=== PATIENT | female | born 1940 | race Asian ===

== ENCOUNTER 2018-08-24 13:16 | Inpatient (IN) | payer OTHER ==
[2018-08-24] MEDS ORDERED: fentaNYL 100 MCG/2 ML INJ IVP ONE (13:21)
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
[2018-08-24 13:44] LABS: PLATELET COUNT 208 10^3/uL (150-400)
[2018-08-24] MEDS ORDERED: HYDROCODONE/APAP 5/325 TAB PO PRN (14:25)
[2018-08-24] MEDS ORDERED: LORazepam 2 MG/ML INJ IVP PRN (14:25)
[2018-08-24] MEDS ORDERED: ACETAMINOPHEN 325 MG TAB PO PRN ×2 (14:25)
[2018-08-24] MEDS ORDERED: ONDANSETRON DISINTEGRATING 4 MG TAB PO PRN (14:25)
[2018-08-24] MEDS ORDERED: ONDANSETRON 4 MG/2 ML VIAL IVP PRN (14:25)
[2018-08-24] MEDS ORDERED: NS 1,000 ML IV SCH (14:30)
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
[2018-08-24] MEDS: HYDROmorphONE/DILAUDID 1 MG/ML INJ IVP PRN ×2 (15:47→21:42)
[2018-08-24] MEDS ORDERED: BUPIVACAINE/EPI 0.5% 30 ML SDV ONE (17:44)
[2018-08-24] MEDS ORDERED: LR 1,000 ML IV ONE (17:44)
--- NOTE | 2018-08-24 17:45 | GCON ---
I was asked to see and evaluate this patient by the emergency room. She sustained a ground level fal l earlier today, resulting in left hip pain and deformity and inability to walk on the left leg. I w as asked by the emergency room to see the patient here. I saw the patient within 30 minutes of the p paresh call, around 2:30 or 3 p.m. PHYSICAL EXAMINATION: The left leg is grossly neurologically intact, limited by pain. However, the skin was clean, dry, and intact. The leg was noted to be shortened and externally rotated. Imaging demonstrates a left intertrochanteric fracture. IMPRESSION: Left intertrochanteric fracture, closed. ASSESSMENT AND PLAN: Patient reports no history of cancer. She does report some osteoporosis drug u se, however, it is unclear if it is bisphosphonate or not. I went over risks, benefits, and alternat tamra of treatment for the patient and I do think that she would strongly benefit from operation to st abilize the hip with an intramedullary implant. We will move forward. She has not eaten any fatty f oods since noon, so we will attempt to open reduce the hip at about 6 o'clock tonight. The patient e xpressed understanding, and would like to move forward with operative management. Thank you for this opportunity to consult with this patient. If there are any questions moving forwa rd, please do not hesitate to contact my cell phone directly at [phone]. /[id number]/MODL
--- NOTE | 2018-08-24 18:00 | PDANEPAE ---
ANE Past Medical History - Pulmonary History Hx Oxygen in Use at Home: No Hx Sleep Apnea: No - Endocrine History Hx Diabetes: No ANE Review of Systems Review of Systems: ANE Patient History - Allergies Allergies/Adverse Reactions: No Known Allergies Allergy (Verified 08/24/18 14:34) - Home Medications Home Medications: Ascorbic Acid [Vitamin C 500 mg (*)] 500 mg PO DAILY 08/24/18 [Last Taken Unknown] Cholecalciferol Vit D3 [Vitamin D3 (*)] 1,000 units PO DAILY 08/24/18 [Last Taken Unknown] Ferrous Sulfate [Ferrous Sulf 325 MG (*)] 325 mg PO DAILY 08/24/18 [Last Taken Unknown] Herbals/Supplements -Info Only 1 ea PO DAILY 08/24/18 [Last Taken Unknown] Hydrocodone/APAP 5/325 [[place] 5/325 (*)] 1 each PO Q4HRS 08/24/18 [Last Taken ] Raloxifene HCl [Evista] 60 mg PO HS 08/24/18 [Last Taken 08/23/18] Tears/Dextran 70/Hypromellose [Natural Balance Tears (*)] 1 drop EACHEYE Q2 PRN 08/24/18 [Last Taken Unknown] traMADol [Ultram 50 mg (*)] 50 mg PO Q4HRS 08/24/18 [Last Taken 08/24/18 12:00] - NPO status NPO Since - Liquids (Date): 08/24/18 NPO Since - Liquids (Time): 13:00 NPO Since - Solids (Date): 08/24/18 NPO Since - Solids (Time): 13:00 - Smoking Hx Smoking Status: Never smoked - Alcohol Use Alcohol Use: None ANE Labs/Vital Signs - Labs Result Diagrams: 08/24/18 13:27 08/24/18 13:27 - Vital Signs Blood Pressure: 107/82 Heart Rate: 103 Respiratory Rate: 18 O2 Sat (%): 94 Height: 132.08 cm Weight: 49.895 kg ANE Physical Exam - Airway Mallampati Score: Class 2 - ASA Status ASA Status: II, E ANE Anesthesia Plan Anesthesia Plan: general endotracheal anesthesia, GA w LMA
[2018-08-24] MEDS ORDERED: ceFAZolin 2 GM/DEXTROSE 100 ML IV ONE (18:03)
[2018-08-24] MEDS ORDERED: fentaNYL 100 MCG/2 ML INJ ONE ×2 (18:04→19:48)
[2018-08-24] MEDS ORDERED: MIDAZOLAM 2 MG/2 ML VIAL ONE (18:04)
[2018-08-24] MEDS ORDERED: TRANEXAMIC ACID 1,000 MG in NS 100 ML IV ONE (18:04)
[2018-08-24] MEDS ORDERED: PROPOFOL 200 MG/20 ML VIAL ONE (18:05)
[2018-08-24] MEDS ORDERED: METOCLOPRAMIDE 10 MG/2 ML VIAL ONE (18:08)
[2018-08-24] MEDS ORDERED: LIDOCAINE 2% JELLY 5 ML TUBE ONE (18:08)
[2018-08-24] MEDS ORDERED: ONDANSETRON 4 MG/2 ML VIAL ONE ×2 (18:08→20:00)
[2018-08-24] MEDS ORDERED: PHENYLEPHRINE HCL 100 MCG/ML SYR ONE (18:26)
--- NOTE | 2018-08-24 19:38 | SUROPNOTE ---
[facility] Operative Report - Surgery Date: 08/24/18 Pre-operative Diagnosis: extracapsular left hip fracture Post-operative Diagnosis: Same Procedure: Left hip open reduction and internal fixation with an intramedullary device Surgeon: Jas Brennan MD Stores Naval: none Anesthesia: General endotracheal anesthesia Findings: As expected Estimated Blood Loss: 300mL Drains: None Specimens: None Complications: None Condition: Transferred to PACU in stable condition. Implants: DePuy Intramedullary nail, size 13mm, 105mm helical blade, 38mm distal interlocking screw Indications: The patient was seen and examined by me in the hospital, and diagnosed with an intertrochanteric hip fx. I have explained all options of treatment for the patient, and the patient has elected to proceed with operative management. I have explained all risks, benefits, and alternatives of the proposed procedure. The risks that we have discussed include , blindness, nerve damage, infection, failure of surgery to alleviate pre-operative symptoms, and possible need for further operation. In addition to the aforementioned procedure, I also discussed with the patient that other procedures may be indicated during the course of surgery. The patient expressed understanding of this. Pre-operative: The proposed incision site was marked in the pre-operative holding area by me. The patient was then taken to the operating room in stable condition. Following smooth induction of general anesthesia, the patient was positioned on a fracture table with all down surfaces well-padded. The contralateral leg was placed into a well-leg lópez with an SCD boot and was well-padded. The patient was then prepped and draped in the usual sterile fashion. Pre-operative antibiotics were administered within one hour of the incision. Tranexamic acid was used to minimize bleeding. A surgical timeout was performed, and all parties involved in the procedure were in agreement on the correct patient, location, and procedure to be performed. Closed reduction: Using fluoroscopic guidance, traction, rotation, and abduction/adduction were used to obtain an acceptable closed reduction of the hip. Once an acceptable reduction was obtained by both AP and lateral radiographs, attention was turned to open reduction. Approach and opening reamer: All of the following steps were confirmed using intermittent fluoroscopic images as needed. A standard lateral approach to the hip was taken. Based on palpable ASIS and greater trochanteric landmarks, a 4cm incision was made in the skin parallel to the femur and ending just proximal to the greater trochanter. The fascia was incised in line with this. Electrocautery was used to coagulate all bleeding vessels. A guidewire was introduced through the abductors and onto the greater trochanter. This was then gently malleted into place to the level of the lesser trochanter. Placement was confirmed to be at the midpoint of the greater trochanter in the lateral plane as well. An opening reamer was then passed into the greater trochanter and all instruments were removed. Nail introduction: A size 12mm x 180mm nail was then malleted into place, and the short guidewire was removed. Proximal helical blade: Using the proximal screw locking guide, a triple sleeve was attached and an incision was made through the proposed screw trajectory. The fascia was also incised at this level. A guide wire was then passed through the sleeve and onto the lateral border of the femur. It was advanced on all views to minimize total tip-apex distance. It was then measured and an appropriately-sized helical blade was selected. An opening reamer was used over the guidewire to create a portal in the lateral femoral cortex and was removed. A reamer was used over the guidewire to create a channel for the lag screw. The lag screw was then advanced over the guidewire and into place in the femoral head. The nail was then locked at the proximal end. A size 105mm blade was used. Distal interlocking screw: Using the guide attached to the nail, the skin and fascia were incised in line with this. Screw tracts were then drilled bicortically, and the appropriately sized distal interlocking screw was placed through the nail. Final radiographs were taken in two planes along the entirety of the femur; fracture reduction and instrumentation placement were deemed to be acceptable. Closure: The field was irrigated copiously with sterile saline. #1 vicryl suture was used to repair the fascia, 2-0 monofilament interrupted sutures were used to repair the dermal layer, and laurie were used to close the skin. Sterile island dressings were applied over the surgical incisions. A surgical count was performed before initiation of closure and following the procedure, and all were correct. I was present for the entire procedure. producer assistant: A account management assistant was used throughout the case, and deemed necessary for safe retraction, hemostasis, and suction. Recovery: The patient was extubated uneventfully in the operating room. The patient was taken to the recovery room in stable condition. Sequential compression devices for VTE prophylaxis were applied to the patients lower extremities, and were ordered to be used while the patient was non-ambulatory. Chemical VTE prophylaxis was started post-operatively. Jas Brennan MD
[2018-08-24] MEDS ORDERED: NALOXONE HCL 0.4 MG/ML INJ IVP PRN (19:40)
[2018-08-24] MEDS ORDERED: oxyCODONE IR 5 MG TAB PO PRN (19:40)
[2018-08-24] MEDS ORDERED: LR 500 ML IV PRN (19:40)
--- NOTE | 2018-08-24 19:41 | POSTANESTH ---
Post Anesthetic Evaluation Cardiovascular Status: Normal, Stable Respiratory Status: Normal, Stable Level of Consciousness/Mental Status: Can Participate in Eval Pain Control: Adequate, Prn Tx Ordered Nausea/Vomiting Control: Adequate, Prn Tx Ordered Complications Possibly Related to Anesthesia: None Noted
[2018-08-24] MEDS: fentaNYL 100 MCG/2 ML INJ IVP PRN ×2 (19:50→20:01)
[2018-08-24] MEDS ORDERED: PROMETHAZINE HCL 25 MG/ML INJ ONE (20:10)
[2018-08-24] MEDS: PROMETHAZINE HCL 25 MG/ML INJ IVP PRN ×2 (20:12→20:40)
[2018-08-24] MEDS ORDERED: HYDROmorphONE/DILAUDID 2 MG/ML INJ ONE (20:16)
[2018-08-24] MEDS: HYDROmorphONE/DILAUDID 2 MG/ML INJ IVP PRN ×4 (20:17→21:09)
[2018-08-25] MEDS: ceFAZolin 2 GM/DEXTROSE 100 ML IV SCH ×2 (02:44→11:43)
[2018-08-25 06:31] LABS: PLATELET COUNT 185 10^3/uL (150-400)
--- NOTE | 2018-08-25 07:28 | GPROG ---
I saw and evaluated the patient at the bedside this morning. Overall, she is doing quite well. PHYSICAL EXAM: The dressings are clean, dry, intact and left in place. The legs are of equal length and rotation and she is grossly neurologically intact distally. IMPRESSION: Postoperative day 1 status post left hip ORIF. ASSESSMENT AND PLAN: From my perspective, the patient can be weightbearing as tolerated. I have ord ered the [facility] to come out and we will get her up with physical therapy today. I would ask that the medical team evaluate for DVT prophylaxis. I would recommend either heparin, Lovenox or daily aspiri n 325 mg for the next 4 weeks time. I will [facility] However, please do not hesitate to contact me if I can answer any questions regarding this patien t in the meantime while she is here. /[id number]/MODL
[2018-08-25] MEDS: oxyCODONE IR 5 MG TAB PO PRN ×2 (09:03→17:16)
[2018-08-25] MEDS ORDERED: TEARS/DEXTRAN 70/HYPROMELLOSE 15 ML OPHT.BTL EACHEYE PRN (10:41)
--- NOTE | 2018-08-25 11:52 | PDMN ---
Medical Necessity [place] [facility] [id number], Open Repir, 3 days: 77 yo presents w/ hip fx after mechanical fall, ortho surg consult: pt underwent urgent L hip TFN short IM nail procedure, MC IP only
[2018-08-25] MEDS: traMADol 50 MG TAB PO SCH ×3 (14:32→21:09)
[2018-08-25] MEDS: HYDROCODONE/APAP 5/325 TAB PO SCH ×3 (14:32→21:10)
--- NOTE | 2018-08-25 15:23 | HOSPPROG ---
Hospitalist Progress Note Assessment/Plan: 77 yo F with hx of chronic pain presenting s/p mechanical fall with left intertrochanteric femur fracture, First encounter, chart reviewed. # acute left intertrochanteric femur fracture: - 2/2 acute fall - will require surgical intervention #Pain -Will continue to work on pain management with prn dilaudid and oxycodone # chronic pain with continuous opiate use and dependency: -complicating management of above, -patient very concerned that this injury too will lead to increase in her chronic pain # anxiety: -patient not anxious this am #Dispo -will likely need SNF -PT/OT -supportive care # IP status, will require > 48 hours stay for eval/mgmt of above FC Subjective: Tired this morning. Pain ok. No specific needs. Objective: Vital Signs Temp Pulse Resp BP Pulse Ox 37.6 C 94 14 102/62 97 08/25/18 12:53 08/25/18 12:53 08/25/18 12:53 08/25/18 12:53 08/25/18 12:53 Laboratory Results 08/25/18 05:14 08/25/18 05:14 08/24/18 08/25/18 08/26/18 05:59 05:59 05:59 Intake Total 1550 Output Total 575 600 Balance 975 -600 - Physical Exam Constitutional: appears nourished, chronically ill appearing, No obese Eyes: PERRL, anicteric sclera, EOMI Ears, Nose, Mouth, Throat: moist mucous membranes, hearing normal, ears appear normal Cardiovascular: regular rate and rhythym, No JVD, No edema Respiratory: no respiratory distress, no rales or rhonchi, reduced air movement Gastrointestinal: normoactive bowel sounds, No tenderness, No ascites Skin: warm, normal color, No mottled Musculoskeletal: joint tenderness, pain with ROM, generalized weakness Neurologic: AAOx3 Psychiatric: not anxious, not encephalopathic, poor memory ICD10 Worksheet Patient Problems: Problems Problem Status Onset Intertrochanteric fracture of left femur Acute
--- NOTE | 2018-08-25 15:47 | ASMTCMCOM ---
CM Note CM Note Notes: Met with pt and spoke with dtr Carmina on speaker phone w/pt. Pt will likely need SNF, she fairly fragile and anxious and will need 24hr supervision. Carmina will review several facilities and her brother who lives in [place], may be able to tour. She will let CM know which facilities she wants referrals sent to. Pt has refused twice to work with PT, CM encouraged her to work with them to the best of her ability, pt very tearful. DC Plan: SNF Date Signed: 08/25/2018 03:45 PM Electronically Signed By:Jazmin Couch RN
[2018-08-25] MEDS: RALOXIFENE HCL 60 MG TAB PO SCH (20:26)
[2018-08-25] MEDS: LORazepam 0.5 MG TAB PO PRN (21:10)
[2018-08-26] MEDS: traMADol 50 MG TAB PO SCH ×6 (01:01→20:15)
[2018-08-26] MEDS: HYDROCODONE/APAP 5/325 TAB PO SCH ×6 (01:01→20:15)
[2018-08-26] MEDS: oxyCODONE IR 5 MG TAB PO PRN ×2 (08:38→12:50)
[2018-08-26] MEDS: CHOLECALCIFEROL VIT D3 1,000 UNITS TAB PO SCH (08:38)
[2018-08-26] MEDS: ENOXAPARIN 40 MG/0.4 ML SYR SC SCH (08:40)
[2018-08-26] MEDS: ASCORBIC ACID 500 MG TAB PO SCH (08:40)
[2018-08-26] MEDS: FERROUS SULFATE 325 MG TAB PO SCH (08:40)
[2018-08-26] MEDS ORDERED: Herbals/Supplements -Info Only PO SCH (09:00)
--- NOTE | 2018-08-26 11:35 | ASMTCMCOM ---
CM Note CM Note Notes: Recieved call from pt's daughter, she and her brother would like referrals sent to [facility] and [facility]. Brother to tour [employer] today. DC Plan: SNF Date Signed: 08/26/2018 11:34 AM Electronically Signed By:Jazmin Couch RN
--- NOTE | 2018-08-26 14:03 | HOSPPROG ---
Hospitalist Progress Note Assessment/Plan: # hip fx s/p ORIF Dr Brennan - pain control - dvt ppx - lovenox # ABLA - post-op # leukocytosis - doubt infection; recheck tomorrow # anxiety - reasonably controlled # dysuria - suspect urethral irritation but patient very concerned; declines exam - check UA # dispo - will need snf Subjective: complains of dysuria, hip pain, leg pain, arm pain, back pain, knee pain Objective: Vital Signs Temp Pulse Resp BP Pulse Ox 37.0 C 105 H 16 91/58 L 96 08/26/18 11:48 08/26/18 11:48 08/26/18 11:48 08/26/18 11:48 08/26/18 11:48 Laboratory Results 08/25/18 05:14 08/25/18 05:14 08/25/18 08/26/18 08/27/18 05:59 05:59 05:59 Intake Total 1550 1150 400 Output Total 575 700 475 Balance 975 450 -75 chart reviewed XR personally reviewed - Physical Exam Constitutional: uncomfortable Cardiovascular: regular rate and rhythym, no murmur, rub, or gallop, systolic murmur Respiratory: no respiratory distress, no rales or rhonchi, clear to auscultation Gastrointestinal: normoactive bowel sounds, soft, non-tender abdomen, no palpable masses ICD10 Worksheet Patient Problems: Problems Problem Status Onset Intertrochanteric fracture of left femur Acute
[2018-08-26] MEDS: LORazepam 0.5 MG TAB PO PRN (20:14)
[2018-08-26] MEDS: RALOXIFENE HCL 60 MG TAB PO SCH (20:15)
--- NOTE | 2018-08-26 21:00 | GPROG ---
I saw and evaluated the patient at the bedside this morning. Overall, she is doing quite well. By r susannah, she needs a little bit of encouragement to get up and move around. PHYSICAL EXAM: The dressing is clean, dry, intact, and left in place. The leg has equal rotation an d length when compared to the contralateral side. IMPRESSION: Postoperative day 2, status post left hip open reduction and internal fixation. ASSESSMENT AND PLAN: From my perspective, the patient is safe for discharge whenever she is deemed m edically appropriate. I will leave disposition up to the medical team as well as physical therapy. Of note, I have requested the patient be placed on Lovenox 40 mg while she is in the hospital and I audi gotti like her to receive at least 1 month of oral aspirin once she leaves the hospital. Again, I anil morales like to see the patient in 2 weeks' time for staple removal and incision check. /[id number]/MODL
[2018-08-27] MEDS: HYDROCODONE/APAP 5/325 TAB PO SCH ×6 (02:51→21:22)
[2018-08-27] MEDS: traMADol 50 MG TAB PO SCH ×6 (03:15→21:23)
[2018-08-27] MEDS: ASCORBIC ACID 500 MG TAB PO SCH (08:29)
[2018-08-27] MEDS: FERROUS SULFATE 325 MG TAB PO SCH (08:29)
[2018-08-27] MEDS: ENOXAPARIN 40 MG/0.4 ML SYR SC SCH (08:29)
[2018-08-27] MEDS: CHOLECALCIFEROL VIT D3 1,000 UNITS TAB PO SCH (08:29)
--- NOTE | 2018-08-27 09:57 | GPROG ---
I saw and evaluated patient this morning. Overall, she is doing quite well. Her leg appears to be o f equal rotation and length when compared to the right. She is ambulating just fine. Dressing is cl corazon, dry, and intact. She has no sensory, motor, or vascular deficits. IMPRESSION: Status post left hip open reduction and internal fixation. ASSESSMENT AND PLAN: From my perspective, this patient meets criteria for discharge whenever approve d by the medical service. I would just like to see her in 2 weeks for staple removal and have instru cted them to leave her dressing in place. The patient should be on some sort of DVT prophylaxis for the next 4 weeks, either aspirin, Lovenox, or heparin. I will communicate with the medical team my t houghts on her progress and will move forward together as a team. /[id number]/MODL
[2018-08-27 11:46] LABS: PLATELET COUNT 118 10^3/uL (150-400)
[2018-08-27] MEDS ORDERED: NS 1,000 ML IV ONE (13:17)
--- NOTE | 2018-08-27 13:19 | HOSPPROG ---
Hospitalist Progress Note Assessment/Plan: # hip fx s/p ORIF Dr Brennan - pain control - dvt ppx - lovenox # hypotension - better now; i suspect that this is d/t her anemia - she refuses a transfusion - will bolus 1L NS # ABLA - post-op - recheck tomorrow # leukocytosis - doubt infection; better today # anxiety - reasonably controlled # dysuria - UA not convincing; still refuses exam - pyridium # dispo - will need snf Subjective: still c/o dysuria; she was hypotensive this am Objective: Vital Signs Temp Pulse Resp BP Pulse Ox 36.8 C 96 16 116/56 L 97 08/27/18 11:43 08/27/18 11:43 08/27/18 11:43 08/27/18 11:43 08/27/18 11:43 Laboratory Results 08/27/18 11:25 08/27/18 11:25 08/26/18 08/27/18 08/28/18 05:59 05:59 05:59 Intake Total 1150 1075 Output Total 700 850 450 Balance 450 225 -[address] Brennan - Physical Exam Constitutional: uncomfortable Cardiovascular: no murmur, rub, or gallop, tachycardia Respiratory: no respiratory distress, no rales or rhonchi, clear to auscultation Gastrointestinal: normoactive bowel sounds, soft, non-tender abdomen, no palpable masses ICD10 Worksheet Patient Problems: Problems Problem Status Onset Intertrochanteric fracture of left femur Acute
--- NOTE | 2018-08-27 15:24 | ASMTCMCOM ---
CM Note CM Note Notes: Spoke w/MD, pt a bit hypotensive today, if stable will dc tomorrow. Pt accepted by [facility], dtr and son notified. DC Plan: [facility]/ [facility] Date Signed: 08/27/2018 03:23 PM Electronically Signed By:Jazmin Couch RN
[2018-08-27] MEDS ORDERED: NS BOLUS 1000 ML (Wide open) IV ONE (16:00)
[2018-08-27] MEDS: PHENAZOPYRIDINE HCL 200 MG TAB PO SCH (18:15)
[2018-08-27] MEDS ORDERED: POLYETHYLENE GLYCOL 3350 17 GM PKT PO PRN (18:23)
[2018-08-27] MEDS ORDERED: BISACODYL 10 MG SUPP PR PRN (18:23)
[2018-08-27] MEDS ORDERED: LACTULOSE 20 GM/30 ML UDCUP PO PRN (18:23)
[2018-08-27] MEDS ORDERED: MAGNESIUM HYDROXIDE 30 ML UDCUP PO PRN (18:23)
[2018-08-27] MEDS: LORazepam 0.5 MG TAB PO PRN (21:23)
[2018-08-27] MEDS: RALOXIFENE HCL 60 MG TAB PO SCH (21:23)
[2018-08-27] MEDS: SENNOSIDES/DOCUSATE SODIUM TAB PO SCH (21:23)
[2018-08-28] MEDS: traMADol 50 MG TAB PO SCH ×3 (02:21→11:40)
[2018-08-28] MEDS: HYDROCODONE/APAP 5/325 TAB PO SCH ×3 (02:21→11:39)
[2018-08-28 07:33] VITALS: BP 93/54
[2018-08-28] MEDS ORDERED: SODIUM FERRIC GLUCONAT/SUCROSE 125 MG in NS 100 ML IV ONE (07:51)
--- NOTE | 2018-08-28 08:03 | PDIAF ---
- Diagnosis Diagnosis: Hip Fracture Code Status: Full Code - Medication Management Discharge Medications: electronically signed and located in the Home Medication List. - Orders Services needed: Registered Nurse, Certified [facility], Physical Therapy, Occupational Therapy Diet Recommendation: no restrictions on diet Additional Instructions: Protected WBAT (no hip precautions) DVT ppx (HSQ, LVX, or 325 ASA daily) x 4 weeks F/u with Dr. Brennan 2 weeks after surgery for suture removal and xrays [phone] for appt - Labs/Radiology HCT/HGB Date: 08/30/18 (Q3 days until stable) - Follow Up Care Current Providers and Referrals: Jas Brennan MD [Medical Doctor] - Patient,NotPresent [Unknown] - As per Instructions
--- NOTE | 2018-08-28 08:23 | GDS ---
DIAGNOSIS: 1. Hip fracture, left-sided, status post open reduction, internal fixation by Dr. Brennan. 2. Acute blood loss anemia. 3. Mild hypotension. 4. Leukocytosis without evidence of an infection. 5. Anxiety. 6. Dysuria with relatively unconvincing urinalysis. HOSPITAL COURSE: A 77-year-old female, who had a mechanical fall and had a left-sided hip fracture. She underwent an IM nail on 08/24/[address] Brennan. She tolerated this procedure well. Her cours e has been complicated by blood loss anemia. Her initial hemoglobin was 13.3, it has trended down to 7.1 on the day of discharge. She is refusing a transfusion at this point. There is no evidence of ongoing blood loss. She is mildly hypotensive at 93/54 on the day of discharge, not significantly di zzy but she is quite weak. We discussed at length that she would feel better with a transfusion, tho ugh she is concerned about this and refuses. I have given her a dose of IV iron today, she will cont inue on her previous home iron. In terms of her hip fracture, recommendations are for protected weightbearing as tolerated. She will get DVT prophylaxis for 4 weeks with Lovenox. She should follow up with Dr. Brennan [facility] and x-rays. She has complained of some dysuria. Urinalysis was not very convincing. I have written for Pyridium which has helped her dysuria. I suspect that this is likely due to urethral irritation from [place] p lacement. Recommend considering stopping Pyridium in a few days if her dysuria resolves. DISPOSITION: She is discharged to [facility] long term facility in stable condition. BILLING: I spent more than 30 minutes on the day of discharge coordinating care. /[id number]/MODL
[2018-08-28] MEDS: PHENAZOPYRIDINE HCL 200 MG TAB PO SCH ×2 (09:16→11:39)
[2018-08-28] MEDS: ENOXAPARIN 40 MG/0.4 ML SYR SC SCH (09:18)
[2018-08-28] MEDS: FERROUS SULFATE 325 MG TAB PO SCH (09:18)
[2018-08-28] MEDS: LORazepam 0.5 MG TAB PO PRN (09:18)
[2018-08-28] MEDS: SENNOSIDES/DOCUSATE SODIUM TAB PO SCH (09:19)
[2018-08-28] MEDS: ASCORBIC ACID 500 MG TAB PO SCH (09:26)
[2018-08-28] MEDS: CHOLECALCIFEROL VIT D3 1,000 UNITS TAB PO SCH (09:27)
--- NOTE | 2018-08-28 11:02 | ASDISCHSUM ---
Discharge Information Plan Status:SNF Medically Cleared to Leave: Discharge Date: D/C Disposition:Fdc Facility ADT D/C Disposition:Fdc Facility Projected Discharge Date:08/27/2018 11:00 AM Transportation at D/C:Wheelchair Van Discharge Delay Reason: Follow-Up Date:08/27/2018 11:00 AM Discharge Slot: Final Diagnosis: Placement Information Referral Type:*[facility]/SNF Referral ID:[id number] Provider Name:[facility] Address 1:[address] Address 2: City:[place] Selection Factors: State:[place] Patient Contact Information Contact Name:DIPTI Relationship:Daughter Address:[address] [place] [address] Work Phone: City:[facility] Phone: State/Zip Code:[place] [address] Email: Financial Information Financial Class:Medicare Primary Plan Desc:MEDICARE INPATIENT Primary Plan Number:[id number] Secondary Plan Desc:[employer] INDEMNITY Secondary Plan Number:[id number] Assessment Information LACE LACE Length of stay for Answers: 3 days current admission Acuity / Level of Answers: Yes Care: Did the patient have an inpatient admission? Comorbidities - select Answers: Opioid dependence all that apply / Chronic pain # of Emergency department Answers: 1-2 visits in the last 6 months Social determinants Answers: History of substance abuse (ETOH, street drugs, prescription drugs, etc.) Mental health diagnosis (anxiety, depression, pers onality disorders, etc.) Score: 17 Date Signed: 08/28/2018 11:01 AM Electronically Signed By:KRUNAL Baptiste [facility] CM Progress Note CM Note CM Note Notes: Met with pt and spoke with dtr Carmina on speaker phone w/pt. Pt will likely need SNF, she fairly fragile and anxious and will need 24hr supervision. Carmina will review several facilities and her brother who lives in [place], may be able to tour. She will let CM know which facilities she wants referrals sent to. Pt has refused twice to work with PT, CM encouraged her to work with them to the best of her ability, pt very tearful. DC Plan: [facility] Date Signed: 08/25/2018 03:45 PM Electronically Signed By:Jazmin Couch RN [facility] CM Progress Note CM Note CM Note Notes: Recieved call from pt's daughter, she and her brother would like referrals sent to [facility] and [facility]. Brother to tour [employer] today. DC Plan: [facility] Date Signed: 08/26/2018 11:34 AM Electronically Signed By:Jazmin Couch RN [facility] CM Progress Note CM Note CM Note Notes: Spoke w/, pt a bit hypotensive today, if stable will dc tomorrow. Pt accepted by [facility], dtr and son notified. DC Plan: [facility]/ [facility] Date Signed: 08/27/2018 03:23 PM Electronically Signed By:Jazmin Couch RN Case Management Discharge Plan Note Case Management Discharge Discharge Order Complete? Answers: Yes Patient to Obtain Answers: Other Notes: [facility] Transportation Arranged Answers: Other Notes: [facility] Yarely Reyes Case Management Transport Answers: Yes Form Complete Faxed Final Orders Answers: Yes Agency/Facility Transfer Answers: Yes Report Printed & Faxed to Receiving Agency Family Notified Answers: Yes Discharge Comments Notes: Pt being discharged to [facility] today. CM notified pt's son. Transport arranged for 1200noon through [facility]. Discharged orders submit. No other needs identified at this time. Date Signed: 08/28/2018 11:00 AM Electronically Signed By:KRUNAL Baptiste Intervention Information
--- NOTE | 2018-08-28 12:49 | GPROG ---
DATE OF SERVICE: 08/28/2018 I saw and evaluated the patient earlier this morning. She is doing quite well. She has refused a bl ood transfusion and has been getting some iron. PHYSICAL EXAM: EXTREMITIES: Her leg is of equal rotation and length when compared to the contralate ral side and the dressing is clean, dry, intact, and left in place. IMPRESSION: Status post left hip open reduction, internal fixation. ASSESSMENT/PLAN: Patient has been dropping her hemoglobin. At this point, the morning hemoglobin va lue is 7.1. I will leave it up to Medicine regarding transfusion protocol. Moving forward, I think the patient can be safely discharged when deemed appropriate by Medicine. I would like to see her in 2 weeks' time from the operation for staple removal and further evaluation. Again, thank you kindly for excellent care of this patient. /[id number]/MODL
== END 2018-08-28 12:19 | DRG 481 ==
LOC: EDUNIT# → F3N 21:15
PROVIDERS: ADMIT Internal Medicine; ATTEND Internal Medicine
PROC: 0QS706Z Reposition Left Upper Femur with Intramedullary Internal Fixation Device, Open Approach (ICD-10-PCS; principal; 2018-08-24 18:00)
DX: S72.142A Displaced intertrochanteric fracture of left femur, initial encounter for closed fracture (principal); D62 Acute posthemorrhagic anemia; F41.8 Other specified anxiety disorders; R30.0 Dysuria; W01.0XXA Fall on same level from slipping, tripping and stumbling without subsequent striking against object, initial encounter; G89.29 Other chronic pain; Y92.017 Garden or yard in single-family (private) house as the place of occurrence of the external cause; Y93.H9 Activity, other involving exterior property and land maintenance, building and construction
CPT/HCPCS: 96374; 97110-GP; 97116-GP; 97162-GP; 97166-GO; 97530-GP; 97535-GO; C1713; C1769; G0390; J0690; J1170; J1650; J2060; J2250; J2370; J2405; J2550; J2704; J2765; J2916; J3010